=== PATIENT | male | born 1955 | race Two or more races ===

== ENCOUNTER 2021-11-04 11:52 | Outpatient (CLI) | payer OTHER | END 2021-11-04 11:57 | disposition home or self-care (01) | LOC: LAB 11:52 | PROVIDERS: ATTEND Urology | DX: I10 Essential (primary) hypertension (principal); N20.1 Calculus of ureter; D68.8 Other specified coagulation defects ==

== ENCOUNTER 2021-11-17 09:32 | Day surgery (SDC) | payer OTHER ==
[~2021-11-17 09:32] MED LIST: NORVASC10 MG PO; TAMS0.4C PO; VASOTEC20 M1 PO; ZETIA10 MG PO
== END 2021-11-17 18:10 | disposition home or self-care (01) ==
LOC: CIR.AMB 09:32
PROVIDERS: ATTEND Urology
DX: N20.1 Calculus of ureter (principal); I10 Essential (primary) hypertension; Z20.822 Contact with and (suspected) exposure to COVID-19